=== PATIENT | female | born 1965 | race Two or more races ===

== ENCOUNTER 2020-12-22 10:36 | Outpatient (CLI) | payer OTHER | END 2020-12-22 13:54 | disposition home or self-care (01) | LOC: OFIC 805 10:36 | PROVIDERS: ATTEND Otolaryngology Otology & Neurotology | DX: H93.12 Tinnitus, left ear (principal) ==

== ENCOUNTER 2022-07-27 09:07 | Outpatient (CLI) | payer OTHER | END 2022-07-27 09:18 | disposition home or self-care (01) | LOC: RAD 09:07 | DX: I50.20 Unspecified systolic (congestive) heart failure (principal) ==

== ENCOUNTER 2022-07-27 09:43 | Outpatient (CLI) | payer OTHER | END 2022-07-27 09:47 | disposition home or self-care (01) | LOC: LAB 09:43 | DX: E03.9 Hypothyroidism, unspecified (principal); N39.0 Urinary tract infection, site not specified; I10 Essential (primary) hypertension; E11.9 Type 2 diabetes mellitus without complications; D51.9 Vitamin B12 deficiency anemia, unspecified; E78.5 Hyperlipidemia, unspecified ==

== ENCOUNTER 2022-10-03 08:55 | Outpatient (CLI) | payer OTHER | END 2022-10-03 09:00 | disposition home or self-care (01) | LOC: LAB 08:55 | DX: U07.1 COVID-19 (principal); B34.1 Enterovirus infection, unspecified ==

== ENCOUNTER 2022-10-15 06:45 | Outpatient (CLI) | payer OTHER | END 2022-10-15 07:06 | disposition home or self-care (01) | LOC: LAB 06:45 → NUCLEAR 08:00 | PROVIDERS: ATTEND Internal Medicine | DX: U07.1 COVID-19 (principal); B34.1 Enterovirus infection, unspecified ==

== ENCOUNTER → 2022-10-15 | Outpatient (CLI) | payer OTHER | END | disposition home or self-care (01) | LOC: NUCLEAR 07:19 | DX: I10 Essential (primary) hypertension (principal) ==

== ENCOUNTER 2023-06-26 10:04 | Emergency (ER) | payer OTHER ==
[~2023-06-26] VITALS: Ht 154.9 cm; Wt 99.8 kg
[2023-06-26] MEDS ORDERED: METFORMIN HCL500 MG PO (10:43)
== END 2023-06-26 13:28 | disposition home or self-care (01) ==
LOC: ER 10:04
DX: I10 Essential (primary) hypertension (principal); E11.9 Type 2 diabetes mellitus without complications; Z79.84 Long term (current) use of oral hypoglycemic drugs

== ENCOUNTER 2023-06-28 07:11 | Outpatient (CLI) | payer OTHER ==
[~2023-06-28 07:11] MED LIST: METFORMIN HCL500 MG PO
== END 2023-06-28 07:12 | disposition home or self-care (01) ==
LOC: LAB 07:11
DX: I11.9 Hypertensive heart disease without heart failure (principal); E11.9 Type 2 diabetes mellitus without complications

== ENCOUNTER 2023-09-10 07:14 | Emergency (ER) | payer OTHER ==
[~2023-09-10] VITALS: Ht 154.9 cm; Wt 98.9 kg
[2023-09-10] MEDS ORDERED: ATORVASTATIN CA20 MG (07:27)
[2023-09-10] MEDS ORDERED: COZAAR50 MG PO (09:17)
[2023-09-10 09:51] LABS: HEMATOCRIT 38.9 % (36.0-45.00); HEMOGLOBIN 13.6 g/dL (12.0-15.00); MEAN CELL VOLUME 83.8 fL (80.00-100.00); MEAN CORPUSCULAR HEMOGLOBIN 29.3 pg (27.00-32.0); PLATELET COUNT 200 K/uL (150-450); RED BLOOD COUNT 4.65 M/uL (4.00-6.00); RED CELL DISTRIBUTION WIDTH 12.9 % (11.5-14.5)
[2023-09-10 10:44] LABS: CALCIUM 9.1 mg/dL (8.5-10.1); CREATININE SERUM 0.53 mg/dL (0.55-1.02); GFR 119.33; POTASSIUM 3.24 mEq/L (3.5-5.1)
[2023-09-10] MEDS ORDERED: BACTRIM DS TAB1 EACH PO (11:56)
== END 2023-09-10 12:02 | disposition home or self-care (01) ==
LOC: ER 07:14
PROVIDERS: General Practice
DX: L03.113 Cellulitis of right upper limb (principal); E11.8 Type 2 diabetes mellitus with unspecified complications; Z79.84 Long term (current) use of oral hypoglycemic drugs

== ENCOUNTER → 2023-09-17 07:10 | Outpatient (CLI) | payer OTHER ==
[~2023-09-17 07:10] MED LIST changes: +ATORVASTATIN CA20 MG; +BACTRIM DS TAB1 EACH PO; +COZAAR50 MG PO
[2023-09-17 09:23] LABS: CALCIUM 8.9 mg/dL (8.5-10.1); CREATININE SERUM 0.59 mg/dL (0.55-1.02); GFR 105.44; POTASSIUM 4.05 mEq/L (3.5-5.1)
== END | disposition home or self-care (01) ==
LOC: LAB 07:10
PROVIDERS: ATTEND Internal Medicine Cardiovascular Disease
DX: I11.9 Hypertensive heart disease without heart failure (principal); E78.2 Mixed hyperlipidemia

== ENCOUNTER 2024-08-11 07:28 | Emergency (ER) | payer OTHER ==
[~2024-08-11] VITALS: Ht 154.9 cm; Wt 93.4 kg
[2024-08-11] MEDS ORDERED: 0.9 % SODIUM CHLORIDE 1,000 ML IV ONE (09:00)
[2024-08-11] MEDS ORDERED: FAMOtidine 10 MG/ML (4ML VIAL) IV ONE (09:00)
[2024-08-11] MEDS ORDERED: INSULIN REGULAR, HUMAN 1,000 UNIT/10 ML UNITS SUBCUTANEO ONE (09:00)
[2024-08-11] MEDS ORDERED: NIFEDIPINE 10 MG CAPSULE PO ONE (09:00)
[2024-08-11 09:44] LABS: HEMATOCRIT 43.5 % (36.0-45.00); HEMOGLOBIN 15.1 g/dL (12.0-15.00); MEAN CELL VOLUME 83.9 fL (80.00-100.00); MEAN CORPUSCULAR HEMOGLOBIN 29.1 pg (27.00-32.0); MEAN CORPUSCULAR HGB CONC 34.7 g/dl (32.0-36.0); RED BLOOD COUNT 5.19 M/uL (4.00-6.00)
[2024-08-11 09:47] LABS: PLATELET COUNT 124 K/uL (150-450)
[2024-08-11 10:31] LABS: BILIRUBIN TOTAL 0.6 mg/dL (0.3-1.2); CREATININE SERUM 0.56 mg/dL (0.55-1.02); GFR 111.58; GLOBULINA 3.6 G/DL (2.4-3.5); POTASSIUM 3.76 mEq/L (3.5-5.1); TOTAL PROTEIN 7.6 gm/dL (6.4-8.2)
[2024-08-11] MEDS ORDERED: BUTALB-ACETAMI1 EACH PO (11:58)
[2024-08-11] MEDS ORDERED: GLUMETZA500 MG PO (11:58)
[2024-08-11] MEDS ORDERED: COZAAR25 MG PO (11:58)
[2024-08-11] MEDS ORDERED: KETOROLAC TROMETHAMINE 30 MG VIAL IM ONE (12:00)
== END 2024-08-11 12:05 | disposition home or self-care (01) ==
LOC: ER 07:29
PROVIDERS: General Practice
DX: I10 Essential (primary) hypertension (principal); G43.809 Other migraine, not intractable, without status migrainosus; E11.65 Type 2 diabetes mellitus with hyperglycemia; Z79.84 Long term (current) use of oral hypoglycemic drugs

== ENCOUNTER 2024-08-13 10:16 | Outpatient (CLI) | payer OTHER ==
[~2024-08-13 10:16] MED LIST changes: +BUTALB-ACETAMI1 EACH PO; +COZAAR25 MG PO; +GLUMETZA500 MG PO
== END 2024-08-13 10:25 | disposition home or self-care (01) ==
LOC: MAMO-SONO 10:16
PROVIDERS: ATTEND General Practice
DX: E11.69 Type 2 diabetes mellitus with other specified complication (principal); I11.9 Hypertensive heart disease without heart failure; E66.9 Obesity, unspecified; N64.0 Fissure and fistula of nipple

== ENCOUNTER → 2024-08-13 10:30 | Outpatient (CLI) | payer OTHER ==
[2024-08-13 11:39] LABS: HEMOGLOBIN 14.9 g/dL (12.0-15.00); MEAN CELL VOLUME 85.1 fL (80.00-100.00); MEAN CORPUSCULAR HEMOGLOBIN 28.8 pg (27.00-32.0); MEAN CORPUSCULAR HGB CONC 33.9 g/dl (32.0-36.0); PLATELET COUNT 136 K/uL (150-450); RED BLOOD COUNT 5.18 M/uL (4.00-6.00)
[2024-08-13 11:42] LABS: PH,URINE 5.5 (5.0-8.0); URINE APPEARANCE Cloudy; URINE BILIRRUBIN Negative (NEGATIVE); URINE BLOOD Negative; URINE COLOR Dark Yellow; URINE KETONE Trace (NEGATIVE); URINE LEUKOCYTE Small; URINE NITRATE Negative; URINE PROTEIN 30 (NEGATIVE); URINE UROBILINOGEN 0.2 E.U./dl
[2024-08-13 11:46] LABS: URINE BACTERIA 2199.7 uL (0.0-1933); URINE EPITHELIAL CELLS 79.2 uL (0.0-38.8); URINE WBC 68.9 uL (0.0-23.2)
[2024-08-13 11:59] LABS: URINE CAST 0.45 uL (0.0-1.40); URINE CRYSTALS FEW /HPF; URINE GLUCOSE >=1000 MG/DL (NEGATIVE); URINE RBC 1.8 uL (0.0-20.8)
[2024-08-13 12:52] LABS: ALBUMIN 4.1 gm/dL (3.4-5.0); BILIRUBIN TOTAL 0.68 mg/dL (0.3-1.2); CALCIUM 8.8 mg/dL (8.5-10.1); CREATININE SERUM 0.59 mg/dL (0.55-1.02); GFR 105.06; GLOBULINA 3.3 G/DL (2.4-3.5); POTASSIUM 3.19 mEq/L (3.5-5.1); T4 FREE 1.07 NG/ML (0.76-1.46); TOTAL PROTEIN 7.4 gm/dL (6.4-8.2); TSH 1.07 uIU/mL (0.358-3.74)
[2024-08-13 13:18] LABS: T3 TOTAL 1.17 ng/ml (0.846-2.02); VITAMIN D3 25 HYDROXY 16.48 ng/ml (30-120)
== END | disposition home or self-care (01) ==
LOC: LAB 10:30
PROVIDERS: ATTEND General Practice
DX: E66.9 Obesity, unspecified (principal); E11.69 Type 2 diabetes mellitus with other specified complication; I11.9 Hypertensive heart disease without heart failure; E55.9 Vitamin D deficiency, unspecified; N39.0 Urinary tract infection, site not specified

== ENCOUNTER 2024-09-15 07:18 | Outpatient (CLI) | payer OTHER ==
[2024-09-15 08:20] LABS: CREATININE SERUM 0.64 mg/dL (0.55-1.02)
== END 2024-09-15 15:59 | disposition home or self-care (01) ==
LOC: LAB 07:18
PROVIDERS: ATTEND Radiology Diagnostic Radiology
DX: R10.32 Left lower quadrant pain (principal)

== ENCOUNTER 2024-09-20 07:31 | Outpatient (CLI) | payer OTHER | END 2024-09-20 07:40 | disposition home or self-care (01) | LOC: TOM 07:31 | PROVIDERS: ATTEND Internal Medicine | DX: R10.32 Left lower quadrant pain (principal) ==

== ENCOUNTER → 2025-01-03 11:04 | Outpatient (CLI) | payer OTHER | END | disposition home or self-care (01) | LOC: LAB 11:04 | PROVIDERS: ATTEND Student in an Organized Health Care Education/Training Program | DX: E11.65 Type 2 diabetes mellitus with hyperglycemia (principal) ==

== ENCOUNTER → 2025-04-08 07:18 | Outpatient (CLI) | payer OTHER ==
[2025-04-08 08:40] LABS: ALBUMIN 3.8 gm/dL (3.4-5.0); BILIRUBIN TOTAL 0.58 mg/dL (0.3-1.2); CALCIUM 9.2 mg/dL (8.5-10.1); CHOL HDL RATIO 4.7 (0-5.0); CREATININE SERUM 0.63 mg/dL (0.55-1.02); GFR 97.06; GLOBULINA 3.1 G/DL (2.4-3.5); POTASSIUM 4.28 mEq/L (3.5-5.1); TOTAL PROTEIN 6.9 gm/dL (6.4-8.2)
== END | disposition home or self-care (01) ==
LOC: LAB 07:18
PROVIDERS: ATTEND Student in an Organized Health Care Education/Training Program
DX: E11.65 Type 2 diabetes mellitus with hyperglycemia (principal); E78.2 Mixed hyperlipidemia; I10 Essential (primary) hypertension

== ENCOUNTER 2025-09-03 08:49 | Outpatient (CLI) | payer OTHER ==
[2025-09-03 11:17] LABS: ALT/SGPT 30.0 U/L (12-78); AST/SGOT 12.0 U/L (15-37); BILIRUBIN TOTAL 0.45 mg/dL (0.3-1.2); BUN CREA RATIO 21.0 (7.0-25.0); CHOL HDL RATIO 4.2 (0-5.0); CREATININE SERUM 0.52 mg/dL (0.55-1.02); GFR 121.11; GLOBULINA 3.1 G/DL (2.4-3.5); GLUCOSE FASTING 177.0 mg/dL (65-100); HDL 36.0 mg/dl (40-60); LDL 97.0 mg/dl (0-130); OSMOLALITY SERUM 287.0 MOSM/KG (275-295); T4 FREE 0.97 NG/ML (0.76-1.46); TSH 1.27 uIU/mL (0.358-3.74); VLDL 17.0 (0-39)
== END 2025-09-03 08:53 | disposition home or self-care (01) ==
LOC: LAB 08:49
PROVIDERS: ATTEND Student in an Organized Health Care Education/Training Program
DX: E11.65 Type 2 diabetes mellitus with hyperglycemia (principal); E78.2 Mixed hyperlipidemia; I10 Essential (primary) hypertension; E03.8 Other specified hypothyroidism; C73 Malignant neoplasm of thyroid gland